=== PATIENT | female | born 1975 | race African-American/Black ===

== ENCOUNTER 2019-12-05 11:13 | Emergency (ER) | payer OTHER ==
[~2019-12-05] VITALS: Ht 167.6 cm; Wt 85.0 kg
[~2019-12-05 11:13] MED LIST: AMLO5TAB4 PO; GLIP5TAB10 PO; LOSA50TA14; METF10002 PO; METF500T27
[2019-12-05 14:13] LABS: BASOPHILS # (AUTO) 0.06 x10^3/uL (0-0.1); BASOPHILS % (AUTO) 1 % (0-1); EOSINOPHILS # (AUTO) 0.48 x10^3/uL (0-0.4); EOSINOPHILS % (AUTO) 6 % (1-7); LYMPHOCYTES % (AUTO) 19 % (22-44); MD NO; MEAN CORPUSCULAR HEMOGLOBIN 27.5 pg (27.0-34.8); MEAN CORPUSCULAR HGB CONC 32.5 g/dL (32.4-35.8); MEAN CORPUSCULAR VOLUME 84.6 fL (80-100); MEAN PLATELET VOLUME 8.1 fL (7.4-10.4); MONOCYTES # (AUTO) 0.34 x10^3/uL (0.2-0.8); MONOCYTES % (AUTO) 4 % (2-9); NEUTROPHILS % (AUTO) 71 % (42-75); PLATELET COUNT 344 x10^3/uL (130-400); RED BLOOD COUNT 4.79 x10^6/uL (3.82-5.3); RED CELL DISTRIBUTION WIDTH 15.2 % (9.6-15.2)
[2019-12-05 14:18] LABS: ALBUMIN 3.6 g/dL (3.4-5.0); ANION GAP 9 mmol/L (5-15); CALCIUM 9.5 mg/dL (8.5-10.1); CHLORIDE 108 mmol/L (98-107)
[2019-12-05 14:26] LABS: CREATININE 0.76 mg/dL (0.55-1.02)
[2019-12-05] MEDS ORDERED: POTASSIUM CHLORIDE 20 MEQ TAB.ER.PRT ONE (14:54)
--- NOTE | 2019-12-05 14:57 | NUR ---
MEDS ADMIN PER AUG.
[2019-12-05 14:58] VITALS: BP 168/94
--- NOTE | 2019-12-05 14:59 | NUR ---
ALL RESULTS ARE BACK AT THIS TIME. CHART UP FOR RECHECK.
[2019-12-05] MEDS ORDERED: POTASSIUM CHLORIDE 20 MEQ TAB.ER.PRT PO SCH (17:00)
== END 2019-12-05 15:38 | disposition home or self-care (01) ==
LOC: ED 15:01
DX: O20.0 Threatened abortion (principal); E11.9 Type 2 diabetes mellitus without complications; I10 Essential (primary) hypertension; Z3A.01 Less than 8 weeks gestation of pregnancy
CPT/HCPCS: 36415; 76801; 80048; 82040; 84702; 85025; 86901; 99284

== ENCOUNTER 2020-05-29 12:55 | Outpatient (CLI) | payer OTHER ==
[~2020-05-29] VITALS: Ht 170.2 cm; Wt 100.0 kg
[2020-05-29 13:03] VITALS: BP 126/77
== END 2020-05-29 13:45 | disposition home or self-care (01) ==
LOC: LDOP 12:55
PROVIDERS: ATTEND Student in an Organized Health Care Education/Training Program
DX: O09.93 Supervision of high risk pregnancy, unspecified, third trimester (principal); Z3A.30 30 weeks gestation of pregnancy
CPT/HCPCS: 59025

== ENCOUNTER 2020-06-05 13:14 | Outpatient (CLI) | payer OTHER ==
[~2020-06-05] VITALS: Ht 167.6 cm; Wt 100.9 kg
[2020-06-05] MEDS ORDERED: METF500T17 PO (13:49)
[2020-06-05] MEDS ORDERED: HYDR25TA6 PO (14:07)
[2020-06-05] MEDS ORDERED: AMLO10TA4 PO (14:08)
[2020-06-05 15:54] VITALS: BP 140/74
== END 2020-06-05 15:50 | disposition home or self-care (01) ==
LOC: LDOP 13:14
PROVIDERS: ATTEND Student in an Organized Health Care Education/Training Program
DX: O09.93 Supervision of high risk pregnancy, unspecified, third trimester (principal); Z3A.31 31 weeks gestation of pregnancy
CPT/HCPCS: 59025

== ENCOUNTER 2020-07-02 12:00 | Outpatient (CLI) | payer OTHER ==
[~2020-07-02] VITALS: Ht 167.6 cm; Wt 105.0 kg
[~2020-07-02 12:00] MED LIST changes: +AMLO10TA4 PO; +HYDR25TA6 PO; +METF500T17 PO
[2020-07-02] MEDS ORDERED: HYDROCHLOROTHIAZIDE 25 MG TABLET PO ONE (12:30)
[2020-07-02] MEDS ORDERED: AMLODIPINE 10 MG TAB PO ONE (12:30)
[2020-07-02 12:56] LABS: BASOPHILS % (AUTO) 1 % (0-1); EOSINOPHILS % (AUTO) 4 % (1-7); LYMPHOCYTES % (AUTO) 11 % (22-44); MEAN CORPUSCULAR HEMOGLOBIN 29.3 pg (27.0-34.8); MEAN CORPUSCULAR HGB CONC 34.5 g/dL (32.4-35.8); MEAN PLATELET VOLUME 7.5 fL (7.4-10.4); MONOCYTES % (AUTO) 8 % (2-9); NEUTROPHILS % (AUTO) 77 % (42-75); PLATELET COUNT 268 x10^3/uL (130-400); RED BLOOD COUNT 3.79 x10^6/uL (3.82-5.3); RED CELL DISTRIBUTION WIDTH 15.6 % (9.6-15.2)
[2020-07-02 12:57] LABS: MD NO
[2020-07-02 13:00] LABS: ALANINE AMINOTRANSFERASE 21 U/L (12-78); ALBUMIN 2.5 g/dL (3.4-5.0); ANION GAP 4 mmol/L (5-15); CALCIUM 9.3 mg/dL (8.5-10.1); CHLORIDE 114 mmol/L (98-107); CREATININE 1.03 mg/dL (0.55-1.02)
[2020-07-02 13:02] LABS: ALKALINE PHOSPHATASE 122 U/L (45-117); BILIRUBIN,TOTAL 0.3 mg/dL (0.2-1.0); TOTAL PROTEIN 6.6 g/dL (6.4-8.2)
[2020-07-02 13:13] LABS: CREATININE,URINE RANDOM 44.6 mg/dL
[2020-07-03] MEDS ORDERED: metFORMIN XR 500 MG TAB.ER.24H PO ONE (08:00)
== END 2020-07-02 13:45 | disposition home or self-care (01) ==
LOC: LDOP 12:00
PROVIDERS: ATTEND Student in an Organized Health Care Education/Training Program
DX: O09.523 Supervision of elderly multigravida, third trimester (principal); Z3A.35 35 weeks gestation of pregnancy
CPT/HCPCS: 36415; 59025; 80053; 82570; 84156; 84550; 85025

== ENCOUNTER 2020-07-09 09:57 | Emergency (ER) | payer OTHER ==
[~2020-07-09] VITALS: Ht 167.6 cm; Wt 104.5 kg
[~2020-07-09 09:57] MED LIST changes: -ERGO500017 PO; -IRON1TAB60 PO
--- NOTE | 2020-07-09 10:16 | NUR ---
Sherri GARG from L&D in room monitoring baby, pt 36 weeks preg
[2020-07-09] MEDS ORDERED: PLEASE ENTER HEIGHT AND WEIGHT MC SCH (10:30)
[2020-07-09] MEDS ORDERED: SODIUM CHLORIDE FLUSH 10ML SYR IVF ONE (10:30)
[2020-07-09 10:39] LABS: BASOPHILS % (AUTO) 1 % (0-1); EOSINOPHILS % (AUTO) 4 % (1-7); LYMPHOCYTES % (AUTO) 9 % (22-44); MEAN CORPUSCULAR HEMOGLOBIN 29.1 pg (27.0-34.8); MEAN CORPUSCULAR HGB CONC 34.2 g/dL (32.4-35.8); MEAN PLATELET VOLUME 7.6 fL (7.4-10.4); MONOCYTES % (AUTO) 8 % (2-9); NEUTROPHILS % (AUTO) 79 % (42-75); PLATELET COUNT 282 x10^3/uL (130-400); RED BLOOD COUNT 3.78 x10^6/uL (3.82-5.3); RED CELL DISTRIBUTION WIDTH 15.4 % (9.6-15.2)
[2020-07-09 10:40] LABS: MD NO
[2020-07-09] MEDS ORDERED: IRON1TAB60 PO (10:43)
[2020-07-09] MEDS ORDERED: ERGO500017 PO (10:43)
--- NOTE | 2020-07-09 10:43 | NUR ---
Pt came from apt to get a EKG from her [employer] and pt got at echocardigram today. The hospital director and tech voiced concern about pt having a possible aortic aneurysm/dissection. Pt denies any change in her back pain, not dizzy, no sob. OB RN Sherri at bedside. Pt in bed with cont spo2, library monitor,bp q 15 min, side rails up x2, call light in reach. Went over plan of care from order list, agrees to pa. Baby hr 150.
[2020-07-09 10:45] LABS: ALBUMIN 2.5 g/dL (3.4-5.0); ANION GAP 10 mmol/L (5-15); CALCIUM 10.6 mg/dL (8.5-10.1); CHLORIDE 111 mmol/L (98-107); CREATININE 0.87 mg/dL (0.55-1.02)
[2020-07-09 11:25] LABS: CREATININE,URINE RANDOM 33.6 mg/dL
--- NOTE | 2020-07-09 11:27 | NUR ---
Pt back from CT, urine sent to lab.
[2020-07-09] MEDS ORDERED: OMNIPAQUE 300 MG/ML, 10ML VIAL ONE (11:34)
[2020-07-09 12:11] VITALS: BP 142/74
== END 2020-07-09 12:42 | disposition home or self-care (01) ==
LOC: ED 12:36
DX: O99.283 Endocrine, nutritional and metabolic diseases complicating pregnancy, third trimester (principal); I10 Essential (primary) hypertension; E11.9 Type 2 diabetes mellitus without complications; Z3A.36 36 weeks gestation of pregnancy
CPT/HCPCS: 36415; 71275; 80048; 82040; 82570; 84156; 84450; 84460; 84550; 85025; 86850; 86900; 99285; Q9967

== ENCOUNTER → 2020-07-09 | Outpatient (CLI) | payer OTHER ==
[~2020-07-09] MED LIST changes: +ERGO500017 PO; +IRON1TAB60 PO
== END | disposition home or self-care (01) ==
LOC: CVU 09:07
PROVIDERS: ATTEND Obstetrics & Gynecology Maternal & Fetal Medicine
DX: O10.913 Unspecified pre-existing hypertension complicating pregnancy, third trimester (principal); I36.1 Nonrheumatic tricuspid (valve) insufficiency; I51.7 Cardiomegaly; E11.65 Type 2 diabetes mellitus with hyperglycemia; I31.3 Pericardial effusion (noninflammatory); Z3A.36 36 weeks gestation of pregnancy
CPT/HCPCS: 93306

== ENCOUNTER 2020-08-28 11:50 | Emergency (ER) | payer OTHER ==
[~2020-08-28] VITALS: Ht 170.2 cm; Wt 88.5 kg
[~2020-08-28 11:50] MED LIST changes: +ACET325T14 PO; +DOCU-131 PO; +ERGO500017 PO; +IBUP-1223 PO; +IRON1TAB60 PO; +ONDA4TAB7 PO; +OXYC5CAP2 PO
--- NOTE | 2020-08-28 12:43 | NUR ---
PT WAS RECENTLY SEEN IN ER AND WAS GIVEN POTASSIUM FOR HER POTASSIUM BEING LOW. PT STATES SHE WENT HOME AND HER RIGHT LEG STARTED TO HURT. PT RETURNED TODAY CO OF RIGHT LEG PAIN. N0 SWELLING OR DEFORMITY. DENIES TRAUMA
[2020-08-28 12:45] LABS: BASOPHILS % (AUTO) 1 % (0-1); EOSINOPHILS % (AUTO) 9 % (1-7); LYMPHOCYTES % (AUTO) 19 % (22-44); MEAN CORPUSCULAR HEMOGLOBIN 27.4 pg (27.0-34.8); MEAN PLATELET VOLUME 7.4 fL (7.4-10.4); MONOCYTES % (AUTO) 5 % (2-9); NEUTROPHILS % (AUTO) 66 % (42-75); PLATELET COUNT 355 x10^3/uL (130-400); RED BLOOD COUNT 4.59 x10^6/uL (3.82-5.3); RED CELL DISTRIBUTION WIDTH 15.1 % (9.6-15.2)
[2020-08-28 12:46] LABS: ALBUMIN 3.9 g/dL (3.4-5.0); ANION GAP 8 mmol/L (5-15); CALCIUM 10.3 mg/dL (8.5-10.1); CHLORIDE 107 mmol/L (98-107)
[2020-08-28 12:47] LABS: MD NO
[2020-08-28] MEDS ORDERED: POTA20TA89 PO (13:03)
[2020-08-28] MEDS ORDERED: LOSA100T14 PO (13:03)
[2020-08-28] MEDS ORDERED: LABE100T6 PO (13:03)
[2020-08-28] MEDS ORDERED: ASPI81TA45 PO (13:05)
[2020-08-28] MEDS ORDERED: ACETAMINOPHEN 325 MG TABLET ONE (13:34)
[2020-08-28 13:45] VITALS: BP 110/77
--- NOTE | 2020-08-28 13:46 | NUR ---
Patient given discharge instructions and they have confirmed that they understand the instructions. Patient ambulatory with steady gait.
[2020-08-28] MEDS ORDERED: ACETAMINOPHEN 325 MG TABLET PO ONE (14:00)
== END 2020-08-28 13:47 | disposition home or self-care (01) ==
LOC: ED 12:25
DX: S83.411A Sprain of medial collateral ligament of right knee, initial encounter (principal); I10 Essential (primary) hypertension; E11.9 Type 2 diabetes mellitus without complications; X58.XXXA Exposure to other specified factors, initial encounter; Y93.89 Activity, other specified; Y92.89 Other specified places as the place of occurrence of the external cause; Y99.8 Other external cause status
CPT/HCPCS: 36415; 80048; 82040; 85025; 99284

== ENCOUNTER → 2020-10-26 | Outpatient (CLI) | payer OTHER ==
[~2020-10-26] MED LIST changes: +ASPI81TA45 PO; +CALC-126 PO; +LABE100T6 PO; +LOSA100T14 PO; +METF10007 PO; +POTA20TA89 PO; +SPIR25TA5 PO
[2020-10-26 09:48] LABS: BASOPHILS % (AUTO) 1 % (0-1); EOSINOPHILS % (AUTO) 5 % (1-7); LYMPHOCYTES % (AUTO) 18 % (22-44); MEAN CORPUSCULAR HEMOGLOBIN 27.6 pg (27.0-34.8); MEAN CORPUSCULAR HGB CONC 32.9 g/dL (32.4-35.8); MEAN PLATELET VOLUME 7.5 fL (7.4-10.4); MONOCYTES % (AUTO) 6 % (2-9); NEUTROPHILS % (AUTO) 69 % (42-75); PLATELET COUNT 373 x10^3/uL (130-400); RED BLOOD COUNT 4.54 x10^6/uL (3.82-5.3); RED CELL DISTRIBUTION WIDTH 15.8 % (9.6-15.2)
[2020-10-26 09:52] LABS: MD NO
[2020-10-26 09:59] LABS: ALBUMIN 3.9 g/dL (3.4-5.0); ANION GAP 6 mmol/L (5-15); CALCIUM 9.7 mg/dL (8.5-10.1); CHLORIDE 104 mmol/L (98-107)
[2020-10-26 10:03] LABS: ALANINE AMINOTRANSFERASE 22 U/L (12-78); ALKALINE PHOSPHATASE 81 U/L (45-117); BILIRUBIN,TOTAL 0.3 mg/dL (0.2-1.0); CREATININE 1.01 mg/dL (0.55-1.02); TOTAL PROTEIN 8.1 g/dL (6.4-8.2)
== END | disposition home or self-care (01) ==
LOC: STAR 08:40
PROVIDERS: ATTEND Otolaryngology
DX: Z01.818 Encounter for other preprocedural examination (principal); E04.9 Nontoxic goiter, unspecified
CPT/HCPCS: 36415; 80053; 85025; 93005

== ENCOUNTER → 2020-10-29 | Outpatient (CLI) | payer OTHER | END | disposition home or self-care (01) | LOC: STAR 09:25 | PROVIDERS: ATTEND Otolaryngology | DX: Z20.822 Contact with and (suspected) exposure to COVID-19 (principal) | CPT/HCPCS: U0003; U0005 ==